=== PATIENT | male | born 1980 | race American Indian/Alaskan Native ===

== ENCOUNTER 2017-01-23 14:57 | Emergency (ER) | payer SELFPAY ==
--- NOTE | 2017-01-23 18:43 | Emergency Department Report ---
ED Upper Extremity Inj HPI - General Chief Complaint: Extremity Injury, Upper Stated Complaint: RIGHT ARM INJURY Time Seen by Provider: 01/23/17 17:37 Source: patient Mode of arrival: Ambulatory Limitations: No Limitations - History of Present Illness Initial Comments: This is a 36-year-old male nontoxic, well nourished in appearance, no acute signs of distress presents to the ED complaining of right arm pain 2 days. 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 Denies numbness, tingly, fever, chills, joint swelling, joint redness, abdominal pain, chest pain or shortness of breath. Patient denies any trauma to the region. Denies any allergies or past medical history. Patient was also requesting for a work excuse starting yesterday and for a couple of days off until Friday. MD Complaint: Injury to:: right, arm -: Gradual, days(s) (3) Other Extremity Injury: Arm: Right Other Injuries: none Place: work Severity scale (0 -10): 7 Improves With: none Worsens With: none Associated Symptoms: denies other symptoms. denies: weakness, numbness, neck pain, suspects foreign body, nausea/vomiting, heard/felt popping sensat - Related Data Previous Rx's Medication Instructions Recorded Last Taken Type Cyclobenzaprine [Flexeril] 10 mg PO TID PRN #15 tablet 01/23/17 Unknown Rx Ibuprofen [Motrin 600 MG tab] 600 mg PO Q8H PRN #30 tablet 01/23/17 Unknown Rx Allergies Allergy/AdvReac Type Severity Reaction Status Date / Time No Known Allergies Allergy Unverified 01/23/17 15:07 ED Review of Systems ROS: Stated complaint: RIGHT ARM INJURY Other details as noted in HPI Constitutional: denies: chills, fever Eyes: denies: eye pain, eye discharge, vision change ENT: denies: ear pain, throat pain Respiratory: denies: cough, shortness of breath, wheezing Cardiovascular: denies: chest pain, palpitations Endocrine: no symptoms reported Gastrointestinal: denies: abdominal pain, nausea, diarrhea Genitourinary: denies: urgency, dysuria Musculoskeletal: denies: back pain, joint swelling, arthralgia Skin: denies: rash, lesions Neurological: denies: headache, weakness, paresthesias Psychiatric: denies: anxiety, depression Hematological/Lymphatic: denies: easy bleeding, easy bruising ED Past Medical Hx - Past Medical History Previous Medical History?: Yes - Surgical History Additional Surgical History: neck surgery - Social History Smoking Status: Current Every Day Smoker Substance Use Type: None - Medications Home Medications: Home Medications Medication Instructions Recorded Confirmed Last Taken Type Cyclobenzaprine [Flexeril] 10 mg PO TID PRN #15 tablet 01/23/17 Unknown Rx Ibuprofen [Motrin 600 MG tab] 600 mg PO Q8H PRN #30 tablet 01/23/17 Unknown Rx ED Physical Exam - General Limitations: No Limitations General appearance: alert, in no apparent distress - Head Head exam: Present: atraumatic, normocephalic, normal inspection - Eye Eye exam: Present: normal appearance, PERRL, EOMI. Absent: scleral icterus, conjunctival injection, nystagmus, periorbital swelling, periorbital tenderness Pupils: Present: normal accommodation - ENT ENT exam: Present: normal exam, normal orophraynx, mucous membranes moist, TM's normal bilaterally, normal external ear exam - Neck Neck exam: Present: normal inspection, full ROM. Absent: tenderness, meningismus, lymphadenopathy, thyromegaly - Respiratory Respiratory exam: Present: normal lung sounds bilaterally. Absent: respiratory distress, wheezes, rales, rhonchi, stridor, chest wall tenderness, accessory muscle use, decreased breath sounds, prolonged expiratory - Cardiovascular Cardiovascular Exam: Present: regular rate, normal rhythm, normal heart sounds. Absent: bradycardia, tachycardia, irregular rhythm, systolic murmur, diastolic murmur, rubs, gallop - GI/Abdominal GI/Abdominal exam: Present: soft, normal bowel sounds. Absent: distended, tenderness, guarding, rebound, rigid, diminished bowel sounds - Rectal Rectal exam: Present: deferred - Extremities Exam Extremities exam: Present: normal inspection, full ROM, tenderness, normal capillary refill. Absent: pedal edema, joint swelling, calf tenderness - Expanded Upper Extremity Exam Left General: Present: normal inspection Shoulder Exam: Present: normal inspection, full ROM Upper Arm exam: Present: normal inspection, full ROM Elbow exam: Present: normal inspection, full ROM Forearm Wrist exam: Present: normal inspection, full ROM, tenderness (flexor carpi ulnaris muscle). Absent: swelling, abrasion, laceration, ecchymosis, deformity, crepidus, dislocation, erythema, tenderness over anatomical snuff box , pain with axial thumb loading Hand Wrist exam: Present: normal inspection, full ROM Neuro motor exam: Present: wrist extension intact, thumb opposition intact, thumb IP flexion intact, thumb adduction intact, fingers 2-5 abduction intact Neurosensory exam: Present: 2-point discrimination, radial nerve intact, ulnar nerve intact, median nerve intact Vascular: Present: vascular compromise, normal capillary refill, radial pulse, brachial pulse, ulnar pulse - Back Exam Back exam: Present: normal inspection, full ROM. Absent: tenderness, CVA tenderness (R), CVA tenderness (L), muscle spasm, paraspinal tenderness, vertebral tenderness, rash noted - Neurological Exam Neurological exam: Present: alert, oriented X3 - Psychiatric Psychiatric exam: Present: normal affect, normal mood - Skin Skin exam: Present: warm, dry, intact, normal color. Absent: rash ED Course Vital Signs 01/23/17 15:29 Temperature 98 F Pulse Rate 82 Respiratory 20 Rate Blood Pressure 139/81 O2 Sat by Pulse 100 Oximetry - Reevaluation(s) Reevaluation #1: 01/23/17 19:06 Patient is speaking in full sentences with no signs of distress noted. ED Medical Decision Making - Medical Decision Making This is a 36-year-old male that presents with muscular pain at the flexor carpi ulnaris. Patient was examined myself and patient is stable. Patient be treated with Flexeril and ibuprofen. Was instructed not to operate any machinery while taking Flexeril due to sedation/drowsiness. There is no signs of any trauma to the region. There is no joint swelling or joint redness. Normal tendon examination. Patient was instructed to follow-up with a primary care doctor in 3-5 days or if symptoms worsen and continue return to emergency room as soon as possible possible. At time time of discharge, the patient does not seem toxic or ill in appearance. No acute signs of distress noted. Patient agrees to discharge treatment plan of care. No further questions noted by the patient. Critical care attestation.: If time is entered above; I have spent that time in minutes in the direct care of this critically ill patient, excluding procedure time. ED Disposition Clinical Impression: Muscle spasm Disposition: - TO HOME OR SELFCARE Is pt being admited?: No Does the pt Need Aspirin: No Condition: Stable Instructions: Ibuprofen (By mouth), Cyclobenzaprine (By mouth), Muscle Spasm ( ED), RICE Therapy (ED) Additional Instructions: Follow-up with a primary care doctor in 3-5 days or if symptoms worsen and continue return to emergency room as soon as possible possible. Take ibuprofen and Flexeril as prescribed. Do not operate heavy machinery while taking Flexeril due to sedation Prescriptions: Cyclobenzaprine [Flexeril] 10 mg PO TID PRN #15 tablet PRN Reason: Muscle Spasm Ibuprofen [Motrin 600 MG tab] 600 mg PO Q8H PRN #30 tablet PRN Reason: Pain Referrals: PRIMARY CARE, [Primary Care Provider] - 3-5 Days JOHANNA SANTIAGO MD [Staff Physician] - 3-5 Days [facility] [Outside] - 3-5 Days [facility] [Outside] - 3-5 Days Forms: Work/School Release Form(ED)
[2017-01-23 19:33] VITALS: BP 155/99
== END 2017-01-23 19:31 | disposition home or self-care (01) ==
LOC: ED 14:57
DX: M79.601 Pain in right arm (principal); F17.210 Nicotine dependence, cigarettes, uncomplicated
CPT/HCPCS: 99281